=== PATIENT | female | born 1960 | race Caucasian/White ===

== ENCOUNTER 2017-09-08 11:45 | Observation (INO) | payer OTHER ==
[~2017-09-08] VITALS: Ht 165.1 cm; Wt 65.5 kg
[2017-09-08 11:51] VITALS: Ht 165.1 cm; Wt 65.5 kg
[2017-09-08] MEDS ORDERED: FISH OIL1000 MG PO (13:55)
[2017-09-08] MEDS ORDERED: MULTI-VITAMINS1 TAB PO (13:55)
[2017-09-08] MEDS ORDERED: EPZICOM1 TAB (13:55)
[2017-09-08 14:19] LABS: BASOPHIL % 0.7 % (0-2); PLATELET COUNT 304 x10^3mcL (130-400); RED CELL DISTRIBUTION WIDTH 13.2 % (11.5-14.5)
[2017-09-08 14:20] LABS: CALCIUM 9.7 mg/dL (8.5-10.1); CARBON DIOXIDE 29.9 mmol/L (21-32); CHLORIDE SERUM 106 mmol/L (98-107); CREATININE SERUM 0.7 mg/dL (0.6-1.0); GFR1 > 60 mL/min; GLUCOSE SERUM 96 mg/dL (74-106); POTASSIUM SERUM 4.2 mmol/L (3.5-5.1); SODIUM SERUM 143 mmol/L (136-145)
[2017-09-08 14:24] LABS: ALBUMIN 4.1 g/dL (3.4-5.0); ALKALINE PHOSPHATASE 81 U/L (46-116); ALT/SGPT 21 U/L (14-59); AST/SGOT 14 U/L (15-37); BILIRUBIN TOTAL 0.38 mg/dL (0.20-1.00)
[2017-09-08 15:11] LABS: MAGNESIUM 2.3 mg/dL (1.8-2.4); PHOSPHOROUS 3.2 mg/dL (2.5-4.9)
[2017-09-08 15:13] LABS: CHOLESTEROL/HDL RATIO 3.2
[2017-09-08 15:16] LABS: T3 TOTAL 0.85 ng/mL
[2017-09-08 15:21] LABS: FREE T4 1.1 ng/dL (0.76-1.46); FREE THYROXINE INDEX 2.6 ug/dL (1.4-4.5)
[2017-09-08 15:22] LABS: microscopic required? NO
[2017-09-08 15:41] LABS: UA SPECIFIC GRAVITY <=1.005 (1.005-1.035); urine erythrocyte NEGATIVE (NEGATIVE)
[2017-09-08 16:16] VITALS: BP 141/79
[2017-09-08 21:12] VITALS: BP 121/66
[2017-09-09 05:51] VITALS: BP 112/64
[2017-09-09 06:44] LABS: CALCIUM 8.5 mg/dL (8.5-10.1); CHLORIDE SERUM 108 mmol/L (98-107); CREATININE SERUM 0.8 mg/dL (0.6-1.0); GFR1 > 60 mL/min; GLUCOSE SERUM 101 mg/dL (74-106); POTASSIUM SERUM 3.9 mmol/L (3.5-5.1); SODIUM SERUM 142 mmol/L (136-145)
[2017-09-09 06:45] LABS: BASOPHIL % 0.8 % (0-2); PLATELET COUNT 273 x10^3mcL (130-400); RED CELL DISTRIBUTION WIDTH 13.4 % (11.5-14.5)
[2017-09-09 09:19] VITALS: BP 120/72
[2017-09-09 11:22] VITALS: BP 120/72
== END 2017-09-09 12:09 | disposition home or self-care (01) | DRG 391 ==
LOC: ED 11:45 → DU 14:36
PROVIDERS: Emergency Medicine; Family Medicine
DX: K21.9 Gastro-esophageal reflux disease without esophagitis (principal); N17.0 Acute kidney failure with tubular necrosis; E78.5 Hyperlipidemia, unspecified; Z68.24 Body mass index [BMI] 24.0-24.9, adult
CPT/HCPCS: 83880; 84439; 85378; G0378; J7030; Q0092